=== PATIENT | male | born 1965 | race African-American/Black ===

== ENCOUNTER 2018-07-13 21:30 | Inpatient (IN) | payer MEDICAID, OTHER ==
[~2018-07-13] VITALS: Ht 175.3 cm; Wt 78.0 kg
[~2018-07-13 21:30] MED LIST: LOSA50TA20 PO; TRAM50TA3 PO
[2018-07-13] MEDS ORDERED: ACETAMINOPHEN 325MG TABLET PO STA (21:58)
[2018-07-13] MEDS ORDERED: SODIUM CHLORIDE 0.9% 1000ML BAG (SEPSIS BOLUS) IV ONE (22:00)
[2018-07-13] MEDS ORDERED: CEFTRIAXONE 1 G PREMIX 50 ML IV ONE (22:00)
[2018-07-13 22:24] LABS: HEMATOCRIT. 47.2 % (42.0-52.0); HEMOGLOBIN. 16.2 g/dL (14.0-18.0); MEAN CORPUSCULAR HEMOGLOBIN 33.2 pg (28.0-32.0); MEAN CORPUSCULAR VOLUME 96.8 fL (80.0-94.0); MEAN PLATELET VOLUME 9.5 fl (7.4-10.4); PLATELET 111 x1000/uL (130-400); RED BLOOD CELL COUNT 4.87 mill/uL (4.7-6.1); RED CELL DISTRIBUTION WIDTH 13.3 % (11.6-14.6)
[2018-07-13 22:28] LABS: CHLORIDE 95 mEq/L (98-107)
[2018-07-13 22:29] LABS: INR 1.2; PROTHROMBIN TIME 12.2 sec (9.6-11.0)
[2018-07-13 22:33] LABS: ETHANOL BLOOD 215 mg/dL
[2018-07-13 22:38] LABS: BG CARBOXYHEMOGLOBIN 0.8 % (0.5-1.5); BG FRACTION INSPIRED OXYGEN 21; BG HCO3 ACT 17.6 mmol/L (22.0-26.0); BG METHEMOGLOBIN 0.4 % (0.0-1.5); BG OXYGEN SATURATION 92.9 % (92.0-98.5); BG OXYHEMOGLOBIN 91.8 % (94.0-97.0); BG PCO2 25.1 mmHg (35.0-45.0); BG PH 7.464 (7.350-7.450); BG SAMPLE SITE RIGHT RADIAL; BG TOTAL HEMOGLOBIN 16.4 g/dL (12.0-18.0); BG VENT MODE ROOM AIR
[2018-07-13 23:10] LABS: PLATELET ESTIMATE DECREASED
[2018-07-13 23:22] LABS: CLARITY URINE CLEAR (CLEAR); COLOR URINE YELLOW (YELLOW); KETONES URINE TRACE (NEGATIVE); LEUKOCYTE ESTERASE URINE NEGATIVE (NEGATIVE); NITRITE URINE NEGATIVE (NEGATIVE); OCCULT BLOOD URINE 1+ (NEGATIVE); PROTEIN URINE 2+ (NEGATIVE); SPECIFIC GRAVITY URINE 1.017 (1.005-1.030); UROBILINOGEN URINE 0.2 E.U./dL (0.2-1.0)
[2018-07-13] MEDS ORDERED: CHLORDIAZEPOXIDE 25MG CAPSULE PO ONE (23:30)
[2018-07-13] MEDS ORDERED: LORAZEPAM 2MG/ML CPJ IV ONE (23:30)
[2018-07-13 23:47] LABS: *AMPHETAMINES SCREEN URINE NEGATIVE (NEGATIVE); *BARBITURATES SCREEN URINE NEGATIVE (NEGATIVE); *BENZODIAZEPINES SCREEN URINE NEGATIVE (NEGATIVE); *COCAINE SCREEN URINE NEGATIVE (NEGATIVE); METHADONE URINE SCREEN NEGATIVE (NEGATIVE); OPIATES URINE SCREEN NEGATIVE (NEGATIVE)
[2018-07-13 23:48] LABS: CANNABINOID URINE SCREEN NEGATIVE (NEGATIVE); PHENCYCLIDINE URINE SCREEN NEGATIVE (NEGATIVE)
[2018-07-14] MEDS ORDERED: THIAMINE HCL 100MG TABLET PO NR (06:00)
[2018-07-14] MEDS ORDERED: PROPRANOLOL HCL 20MG TABLET PO NR (06:00)
[2018-07-14] MEDS ORDERED: FERR-71 MT (08:42)
[2018-07-14 08:53] VITALS: BP 140/89
[2018-07-14] MEDS ORDERED: IPRATROPIUM/ALBUTEROL 0.5-3(2.5)MG/3ML NEB INH PRN (09:00)
[2018-07-14] MEDS ORDERED: CLONIDINE 0.1MG TABLET PO PRN (09:00)
[2018-07-14] MEDS ORDERED: ONDANSETRON HCL 4MG/2ML INJ IV PRN (09:00)
[2018-07-14] MEDS ORDERED: MAGNESIUM/ALUMINUM HYDROXIDE/SIMETHICONE 30ML UDC PO PRN (09:00)
[2018-07-14] MEDS: FAMOTIDINE 20MG TABLET PO SCH ×2 (09:17→22:25)
[2018-07-14] MEDS: DOCUSATE SODIUM 100MG CAPSULE PO SCH (09:17)
[2018-07-14 09:18] LABS: BG BASE EXCESS 0.4 mmol/L (-2.0-2.0); BG CARBOXYHEMOGLOBIN 0.9 % (0.5-1.5); BG DEOXYHEMOGLOBIN 3.5 % (0.0-5.0); BG HCO3 ACT 21.6 mmol/L (22.0-26.0); BG METHEMOGLOBIN 0.3 % (0.0-1.5); BG OXYGEN SATURATION 96.5 % (92.0-98.5); BG OXYHEMOGLOBIN 95.3 % (94.0-97.0); BG PCO2 27.2 mmHg (35.0-45.0); BG PH 7.518 (7.350-7.450); BG PO2 78.6 mmHg (75.0-100.0); BG SAMPLE SITE RIGHT RADIAL; BG TOTAL HEMOGLOBIN 16.2 g/dL (12.0-18.0); BG VENT MODE ROOM AIR
[2018-07-14 09:52] LABS: HEMATOCRIT. 45.2 % (42.0-52.0); HEMOGLOBIN. 15.6 g/dL (14.0-18.0); MEAN CORPUSCULAR HEMOGLOBIN 32.8 pg (28.0-32.0); MEAN CORPUSCULAR VOLUME 95.4 fL (80.0-94.0); MEAN PLATELET VOLUME 9.4 fl (7.4-10.4); PLATELET 101 x1000/uL (130-400); RED BLOOD CELL COUNT 4.74 mill/uL (4.7-6.1); RED CELL DISTRIBUTION WIDTH 13.2 % (11.6-14.6)
[2018-07-14 09:57] LABS: CHLORIDE 100 mEq/L (98-107)
[2018-07-14] MEDS: SODIUM CHL 0.45% + KCL 20MEQ/L 1,000 ML IV SCH (11:25)
[2018-07-14] MEDS: SULFACETAMIDE SODIUM 10% OPHTH DROPS 15ML BOTHEYE SCH ×4 (11:25→22:29)
[2018-07-14 11:33] VITALS: BP 140/89
[2018-07-14 12:00] VITALS: BP 128/66
[2018-07-14 13:01] LABS: PLATELET ESTIMATE DECREASED
[2018-07-14] MEDS: PROPRANOLOL HCL 20MG TABLET PO SCH ×2 (13:34→22:24)
[2018-07-14] MEDS ORDERED: INFLUENZA VIRUS VACCINE(AFLURIA) 0.5ML SYR IM ONE (14:00)
[2018-07-14 15:22] LABS: CREATINE KINASE MB FRACTION 3.8 ng/mL (0.5-3.6)
[2018-07-14 16:49] VITALS: BP 141/82
[2018-07-14] MEDS: LORAZEPAM 0.5MG TABLET PO PRN (18:26)
[2018-07-14 20:00] VITALS: BP 139/78
[2018-07-14 23:59] LABS: CREATINE KINASE MB FRACTION 2.9 ng/mL (0.5-3.6)
[2018-07-15] VITALS: BP 128/74
[2018-07-15 04:00] VITALS: BP 132/64
[2018-07-15] MEDS: SODIUM CHL 0.45% + KCL 20MEQ/L 1,000 ML IV SCH (05:02)
[2018-07-15] MEDS: PROPRANOLOL HCL 20MG TABLET PO SCH (05:02)
[2018-07-15 06:48] LABS: HEMATOCRIT. 45.3 % (42.0-52.0); HEMOGLOBIN. 15.4 g/dL (14.0-18.0); MEAN CORPUSCULAR HEMOGLOBIN 32.6 pg (28.0-32.0); MEAN CORPUSCULAR VOLUME 95.9 fL (80.0-94.0); MEAN PLATELET VOLUME 9.5 fl (7.4-10.4); PLATELET 96 x1000/uL (130-400); RED BLOOD CELL COUNT 4.73 mill/uL (4.7-6.1); RED CELL DISTRIBUTION WIDTH 13.2 % (11.6-14.6)
[2018-07-15 06:52] LABS: CHLORIDE 95 mEq/L (98-107)
[2018-07-15 08:00] VITALS: BP 146/86
[2018-07-15] MEDS ORDERED: POTASSIUM CHLORIDE 20MEQ TABLET SR PO NR (08:00)
[2018-07-15] MEDS: DOCUSATE SODIUM 100MG CAPSULE PO SCH (08:31)
[2018-07-15] MEDS: SULFACETAMIDE SODIUM 10% OPHTH DROPS 15ML BOTHEYE SCH (08:31)
[2018-07-15] MEDS: FAMOTIDINE 20MG TABLET PO SCH (08:31)
[2018-07-15] MEDS: LORAZEPAM 0.5MG TABLET PO PRN (08:52)
[2018-07-15 09:00] VITALS: BP 146/86
[2018-07-15] MEDS ORDERED: THIAMINE HCL 100MG TABLET PO SCH (09:00)
[2018-07-15 13:01] LABS: PLATELET ESTIMATE DECREASED
== END 2018-07-15 10:05 | disposition home or self-care (01) | DRG 282 ==
LOC: ER 21:30 → 8WST 07-14 01:44 → EDBEDREQ 07-14 01:49 → EDBEDREQTM 07-14 01:49 → EDBEDREQSVC 07-14 01:49 → ENRESERV 07-14 07:08
PROVIDERS: ADMIT Internal Medicine Geriatric Medicine; ATTEND Internal Medicine Geriatric Medicine
DX: K85.90 Acute pancreatitis without necrosis or infection, unspecified (principal); J96.90 Respiratory failure, unspecified, unspecified whether with hypoxia or hypercapnia; E22.2 Syndrome of inappropriate secretion of antidiuretic hormone; K70.9 Alcoholic liver disease, unspecified; R65.10 Systemic inflammatory response syndrome (SIRS) of non-infectious origin without acute organ dysfunction; F10.229 Alcohol dependence with intoxication, unspecified; I10 Essential (primary) hypertension; E87.6 Hypokalemia; E11.65 Type 2 diabetes mellitus with hyperglycemia; G40.909 Epilepsy, unspecified, not intractable, without status epilepticus; F10.239 Alcohol dependence with withdrawal, unspecified; R00.0 Tachycardia, unspecified; Z91.041 Radiographic dye allergy status; Z88.6 Allergy status to analgesic agent; Z91.013 Allergy to seafood; Z71.41 Alcohol abuse counseling and surveillance of alcoholic
CPT/HCPCS: 36415; 36600; 71045; 74176; 76705; 80048; 80305; 80320; 82375; 82553; 82805; 83605; 84145; 84484; 87493; 93005; 96365; 96375; 99291; C1893; J0696; J2060; J2405; J3480; J7030; G0480

== ENCOUNTER 2024-06-23 19:38 | Emergency (ER) | payer MEDICAID ==
[~2024-06-23] VITALS: Ht 175.3 cm; Wt 73.0 kg
[~2024-06-23 19:38] MED LIST changes: +FERR-71 MT; -LOSA50TA20 PO; -TRAM50TA3 PO
[2024-06-23 19:46] VITALS: BP 134/76; PULSE 98; RESP 20; TEMP 36.8; O2SAT 95
[2024-06-24] MEDS: CYCLOBENZAPRINE 10MG TABLET PO ONE
[2024-06-24] MEDS ORDERED: LIDO700A15 TP (01:14)
== END 2024-06-24 02:24 | disposition home or self-care (01) ==
LOC: ER 19:38
DX: M79.601 Pain in right arm (principal); F10.90 Alcohol use, unspecified, uncomplicated; Z88.6 Allergy status to analgesic agent; Z88.8 Allergy status to other drugs, medicaments and biological substances; Z91.041 Radiographic dye allergy status; Y90.9 Presence of alcohol in blood, level not specified
CPT/HCPCS: 73130; 99283

== ENCOUNTER 2024-06-24 15:27 | Emergency (ER) | payer MEDICAID ==
[~2024-06-24] VITALS: Ht 172.7 cm; Wt 88.0 kg
[~2024-06-24 15:27] MED LIST changes: +LIDO700A15 TP
[2024-06-24 15:36] VITALS: BP 120/70; PULSE 118; RESP 18; TEMP 37; O2SAT 95
[2024-06-24 16:44] LABS: BASOPHILS % 0.4 % (0.0-2.0); EOSINOPHILS % 0.3 % (0.0-5.0); HEMATOCRIT. 44.2 % (42.0-52.0); HEMOGLOBIN. 14.3 g/dL (14.0-18.0); LYMPHOCYTES % 10.9 % (20.0-50.0); MEAN CORPUSCULAR HEMOGLOBIN 29.2 pg (28.0-32.0); MEAN CORPUSCULAR HGB CONC 32.4 g/dL (31.0-37.0); MEAN PLATELET VOLUME 8.8 fl (7.4-10.4); MONOCYTES % 14.8 % (2.0-8.0); NEUTROPHILS % 73.6 % (40.0-76.0); PLATELET 163 x1000/uL (130-400); RED BLOOD CELL COUNT 4.92 mill/uL (4.7-6.1); RED CELL DISTRIBUTION WIDTH 15.6 % (11.6-14.6); WHITE BLOOD COUNT 4.3 x1000/uL (4.5-11.0)
[2024-06-24 16:48] LABS: CHLORIDE 100 mEq/L (98-107); POTASSIUM 3.7 mEq/L (3.5-5.1); SODIUM 132 mEq/L (136-145)
[2024-06-24 16:49] LABS: CARBON DIOXIDE 23 mEq/L (21-32)
[2024-06-24 16:50] LABS: CALCIUM 9.2 mg/dL (8.7-10.4)
[2024-06-24 16:54] LABS: CREATININE 0.8 mg/dL (0.6-1.3); GLUCOSE 100 mg/dL (70-105)
[2024-06-24 16:55] LABS: UREA NITROGEN BLOOD 7 mg/dL (9-23)
[2024-06-24 18:05] LABS: ETHANOL BLOOD < 10 mg/dL (<10)
== END 2024-06-24 19:02 | disposition home or self-care (01) ==
LOC: ER 15:27
DX: Z00.8 Encounter for other general examination (principal); F10.90 Alcohol use, unspecified, uncomplicated; Z87.891 Personal history of nicotine dependence; Z79.899 Other long term (current) drug therapy; Z88.6 Allergy status to analgesic agent; Z88.8 Allergy status to other drugs, medicaments and biological substances; Z91.041 Radiographic dye allergy status; Y90.9 Presence of alcohol in blood, level not specified
CPT/HCPCS: 36415; 80048; 80320; 85025; 99283; G0480